=== PATIENT | female | born 1975 ===

== ENCOUNTER 2022-06-21 08:08 | Outpatient (CLI) | payer OTHER | END 2022-06-21 08:09 | disposition home or self-care (01) | LOC: LAB 08:08 | PROVIDERS: ATTEND Obstetrics & Gynecology | DX: Z00.8 Encounter for other general examination (principal); N30.00 Acute cystitis without hematuria; E88.9 Metabolic disorder, unspecified; E78.5 Hyperlipidemia, unspecified; E89.0 Postprocedural hypothyroidism; R09.3 Abnormal sputum ==